=== PATIENT | female | born 1960 | race Caucasian/White ===

== ENCOUNTER → 2016-11-10 | Outpatient (CLI) | payer MEDICARE, MEDICAID ==
[~2016-11-10] MED LIST: ABILIFY 10MG TA10 MG PO; ALBUTEROL1.25 MG/3 IH; AMBIEN 5MG TABLE5 MG PO; AMOXICILLIN 8751 TAB PO; ASPIRIN 81M81 MG/TA2 PO; ATENOLOL; CEPHALEXIN500 M1 PO; CIPRO HC OTIC S10 ML OT; CLARITIN 1010 MG/TAB PO; CLEOCIN PO; CLONAZEPAM PO; COREG 25MG25 MG/TAB PO; CYMBALTA 60MG60 MG PO; CYMBALTA60 M1 PO; ESCITALOPRAM; ESKALITH; FASTIN30 MG PO; FERROUS SULFATE65 MG PO; FLEXERIL10 MG PO; FLONASE NASAL S16 GM NS; FLOVENT 220MCG7.9 GM IH; GLUCOPHAGE500 MG/TAB PO; KLONOPIN 0.5MG0.5 MG PO; LABETALOL200 MG PO; LAMICTAL 100MG100 MG PO; LAMICTAL 25MG T25 MG PO; LASIX20 MG PO; LEVO T PO; LEVOTHYROXINE PO; LEVOXYL0.15 MG PO; LIDODERM5% TP; LITHIUM CARBON450 MG PO; LORTAB 10/500 51 TAB PO; LORTAB 5/500 501 TAB PO; LORTAB 7.5/5001 TAB; MOBIC 7.5MG7.5 MG PO; MOBIC15 MG PO; NIASPAN 500MG500 MG PO; NORCO 325 MG-51 TAB PO; NORCO 325 MG-7.1 TAB PO; OXYCODONE CR10 MG PO; OXYGEN; PERCOCET 5/321 UDTAB PO; PHENERGAN 25 TA25 MG PO; PHENTERMINE15 MG; PHENTERMINE15 MG PO; PROAIR HFA0.09 MG/AC IH; QVAR0.08 MG/AC IH; RISPERDAL2 MG PO; RISPERDAL3 MG PO; SEROQUEL; SEROQUEL 1100 MG/TAB PO; SINGULAIR10 MG PO; TENORMIN100 MG PO; THERAPEUTIC VIT1 CAP PO; TRAZODONE100 MG PO; TRICOR145 MG PO; TRICOR54 MG PO; TYLENOL W/COD1 UDTAB PO; ZESTRIL40 MG PO; ZIPRASIDONE; ZITHROMAX 250M250 MG PO; ZOCOR 20MG20 MG PO; ZOCOR 40MG40 MG PO
== END ==
LOC: MC.RAD 07:40
DX: Z12.31 Encounter for screening mammogram for malignant neoplasm of breast (principal)

== ENCOUNTER → 2017-12-22 | Outpatient (CLI) | payer MEDICARE, MEDICAID | LOC: COL.RAD 13:50 | DX: H34.8322 Tributary (branch) retinal vein occlusion, left eye, stable (principal) | CPT/HCPCS: A9585 ==

== ENCOUNTER → 2018-01-27 | Outpatient (CLI) | payer MEDICARE, MEDICAID | LOC: MC.RAD 13:51 | DX: Z12.31 Encounter for screening mammogram for malignant neoplasm of breast (principal) ==